=== PATIENT | female | born 1945 | race Caucasian/White ===

== ENCOUNTER 2021-11-19 04:43 | Inpatient (IN) | payer MEDICARE, MEDICAID ==
[~2021-11-19] VITALS: Ht 160 cm; Wt 38.6 kg
[2021-11-19] MEDS ORDERED: BUPROPION XL150 MG PO (11:10)
[2021-11-19] MEDS ORDERED: CITALOPRAM HBR40 MG PO (11:10)
[2021-11-19] MEDS ORDERED: ASPIRIN EC81 MG PO (11:11)
[2021-11-19] MEDS ORDERED: IPRAT-ALBUT 0.5-3 ML INH (11:12)
[2021-11-20 06:41] LABS: HEMOGLOBIN 9.3 gm/dl (12.3-15.3); RED BLOOD COUNT 2.81 M/UL (4.00-5.10); WHITE BLOOD COUNT 8.6 K/UL (4.5-11.0)
[2021-11-20 06:50] LABS: BUN/CREATININE RATIO 41 (0-10)
--- NOTE | 2021-11-20 14:06 | NUR ---
16FR ROJO CATHETER INSERTED IN STERILE TECHNIQUE. ONE ATTEMPT, 300ML OF DARK YELLOW URINE DRAINED TO GRAVITY. PATIENT TOLERATED PROCEDURE WELL.
[2021-11-21 06:06] LABS: HEMOGLOBIN 7.7 gm/dl (12.3-15.3)
[2021-11-21 06:08] LABS: RED BLOOD COUNT 2.32 M/UL (4.00-5.10)
[2021-11-21 06:20] LABS: BUN/CREATININE RATIO 53 (0-10)
--- NOTE | 2021-11-21 09:15 | NUR ---
TELE CALLED PATIENT OXYGEN SATURATION DOWN TO 70s, PATIENT RESTING WITH EYE CLOSED IN NO ACUTE DISTRESS. INCREASED OXYGEN TO 5L, PATIENT OXYGEN SATURATION IMPROVED TO 93%. RT ALMA NOTIFIED FOR PRN BREATHING TREATMENT.
[2021-11-22 05:24] LABS: BUN/CREATININE RATIO 39 (0-10)
[2021-11-22 06:26] LABS: WHITE BLOOD COUNT 8.4 K/UL (4.5-11.0)
[2021-11-22 06:47] LABS: RED BLOOD COUNT 1.94 M/UL (4.00-5.10)
[2021-11-22 06:48] LABS: HEMOGLOBIN 6.4 gm/dl (12.3-15.3)
[2021-11-22 16:07] LABS: HEMOGLOBIN 8.7 gm/dl (12.3-15.3)
[2021-11-23 05:54] LABS: WHITE BLOOD COUNT 10.4 K/UL (4.5-11.0)
[2021-11-23 05:58] LABS: RED BLOOD COUNT 2.78 M/UL (4.00-5.10)
[2021-11-23 06:35] LABS: BUN/CREATININE RATIO 29 (0-10)
--- NOTE | 2021-11-23 09:05 | NUR ---
spoken to dr. chacon of patient ct scan of abdomen with contrast per (asbestos abatement technician ) to r/t pe and stated he will d/c the order. reported to him of patient increase of 02 last night to 12 L and that I notified RT about it and that will continue to monitor-he acknowledged
--- NOTE | 2021-11-23 13:55 | NUR ---
patient transfer from bed to chair with 2 assist. patient sat up and pulse ox goes to 87% on 02 7L via nasal cannula. md aware of this situation. patient has been coached to perform deep breathing exercises and pulse ox goes to 90's and above. no s/sx of any respiratory insufficiency. RT has been in the patient room and has lower the oxygen to 5L via nasal cannula and has been staying to 90's-100 range. unfortunately with activity patient oxygenation goes down. will continue to monitor. will encourage to use her incentive spirometer.
[2021-11-24 06:49] LABS: HEMOGLOBIN 8.6 gm/dl (12.3-15.3); RED BLOOD COUNT 2.66 M/UL (4.00-5.10)
[2021-11-24 06:53] LABS: WHITE BLOOD COUNT 7.2 K/UL (4.5-11.0)
[2021-11-24 07:03] LABS: BUN/CREATININE RATIO 33 (0-10)
--- NOTE | 2021-11-24 14:03 | NUR ---
reported to dr. chacon patient low b/p and patient not on any distress. received order
[2021-11-24] MEDS ORDERED: MEGACE 400400 MG/10 PO (17:29)
[2021-11-24] MEDS ORDERED: DOCUSATE SODIU100 MG PO (17:29)
[2021-11-24] MEDS ORDERED: HYDROCODON-ACE1 EAC4 PO (17:29)
[2021-11-25 07:01] LABS: RED BLOOD COUNT 2.78 M/UL (4.00-5.10)
[2021-11-25 07:29] LABS: BUN/CREATININE RATIO 23 (0-10)
[2021-11-25] MEDS ORDERED: OMNICEF 300 MG300 MG PO (09:37)
[2021-11-25] MEDS ORDERED: MIRALAX17 GM PO (09:37)
[2021-11-25] MEDS ORDERED: DOXYCYCLINE HY100 M2 PO (10:31)
[2021-11-25] MEDS ORDERED: FUROSEMIDE20 MG PO (10:31)
[2021-11-25] MEDS ORDERED: SENNA PLUS TAB1 EACH PO (10:31)
[2021-11-25] MEDS ORDERED: PROTONIX 40 MG40 M1 PO (11:12)
[2021-11-25] MEDS ORDERED: PULMICORT0.5 MG/21 INH (11:12)
[2021-11-25] MEDS ORDERED: PROAMATINE 2.52.5 MG PO (14:06)
--- NOTE | 2021-11-25 16:38 | NUR ---
RIGHT ELBOW WITH SMALL AMOUNT OF BLOOD AND YELLOW DRAINAGE NOTED THIS AFTERNOON. RE-DRESSED WITH TWO NON-ADHERENT PADS AND GAUZE ROLL. PATIENT TOLERATED WELL. AWARE.
== END 2021-11-25 18:24 | DRG 492 ==
LOC: M/S 04:43 → MED SURG 4 07:10
PROVIDERS: Orthopaedic Surgery; Physician Assistant Medical; ADMIT Internal Medicine
PROC: 0PSF04Z Reposition Right Humeral Shaft with Internal Fixation Device, Open Approach (ICD-10-PCS; principal; 2021-11-20 17:46)
PROC: 30233N1 Transfusion of Nonautologous Red Blood Cells into Peripheral Vein, Percutaneous Approach (ICD-10-PCS; 2021-11-22)
DX: S42.291A Other displaced fracture of upper end of right humerus, initial encounter for closed fracture (principal); J96.21 Acute and chronic respiratory failure with hypoxia; J96.22 Acute and chronic respiratory failure with hypercapnia; D62 Acute posthemorrhagic anemia; Z20.822 Contact with and (suspected) exposure to COVID-19; F32.A Depression, unspecified; J44.9 Chronic obstructive pulmonary disease, unspecified; W18.30XA Fall on same level, unspecified, initial encounter; S00.03XA Contusion of scalp, initial encounter; I10 Essential (primary) hypertension; F41.9 Anxiety disorder, unspecified; J40 Bronchitis, not specified as acute or chronic; Z79.01 Long term (current) use of anticoagulants; Z79.82 Long term (current) use of aspirin; Z87.891 Personal history of nicotine dependence; Z99.81 Dependence on supplemental oxygen; Z90.49 Acquired absence of other specified parts of digestive tract; Z98.891 History of uterine scar from previous surgery; Z80.9 Family history of malignant neoplasm, unspecified
CPT/HCPCS: 36415; 36430; 36600; 71045; 73030; 73060; 73721; 74018; 76000; 80048; 82803; 82962; 83540; 83550; 83735; 85014; 85018; 85025; 85027; 86850; 86900; 86901; 86920; 93005; 94640; 94664; 94760; 96374; 96375; 96376; 97110; 97110-GP-CQ; 97162; 97165; 97530; 97530-GP-CQ; 97535; C1713; G0378; G0379; J0690; J1100; J1170; J1650; J2001; J2250; J2405; J2704; J2710; J2795; J3010; J7050; P9016; Q9967; U0002